=== PATIENT | male | born 1965 | race Caucasian/White ===

== ENCOUNTER 2023-10-11 10:37 | Emergency (ER) | payer OTHER ==
[~2023-10-11] VITALS: Ht 180.3 cm; Wt 59.4 kg
[2023-10-11 11:12] VITALS: BP 106/69
[2023-10-11 12:11] LABS: Source, Urine Foley catheter
[2023-10-11 12:13] LABS: Appearance, Urine Turbid (Clear); Bilirubin, Urine Neg (Neg); Blood, Urine 5+ (Neg); Glucose Qualitative, Urine Neg (Neg); Ketones, Urine Neg (Neg); Leukocyte Esterase, Urine 3+ (Neg); Nitrite, Urine Pos (Neg); Protein, Urine 3+ (Neg); Urobilinogen, Urine NORM (Normal)
[2023-10-11 12:21] LABS: Color, Urine Yellow (P-Yellow)
[2023-10-11 12:22] LABS: White Blood Cells, Urine TNTC /hpf (0-5)
[2023-10-11 12:23] LABS: Bacteria Many /hpf; Squamous Epithelial Cells Rare /hpf (Few)
[2023-10-11] MEDS ORDERED: Bactrim Ds Tab1 EACH PO (12:39)
== END 2023-10-11 13:15 | disposition home or self-care (01) ==
LOC: ER 10:37
PROVIDERS: Physician Assistant
DX: N39.0 Urinary tract infection, site not specified (principal); T83.84XA Pain due to genitourinary prosthetic devices, implants and grafts, initial encounter; C61 Malignant neoplasm of prostate; Z96.0 Presence of urogenital implants
CPT/HCPCS: 51702; 81001; 99283-25; A9270

== ENCOUNTER 2024-06-26 09:41 | Emergency (ER) | payer OTHER ==
[~2024-06-26] VITALS: Ht 180.3 cm; Wt 63.0 kg
[~2024-06-26 09:41] MED LIST: Bactrim Ds Tab1 EACH PO
[2024-06-26 10:11] VITALS: BP 143/87
[2024-06-26] MEDS ORDERED: OXYC10TA19 PO (10:13)
[2024-06-26] MEDS ORDERED: RAYOS PO (10:13)
[2024-06-26] MEDS ORDERED: NUBEQA300 MG PO (10:14)
[2024-06-26] MEDS ORDERED: Percocet 10-321 EACH PO (10:32)
[2024-06-26] MEDS ORDERED: OxyCODONE HCL 5 MG TAB PO ONE (10:35)
[2024-08-04] MEDS ORDERED: AMOX-CLAV 875-1 EAC5 PO (11:40)
[2024-08-04] MEDS ORDERED: NALOXONE HCL4 MG (11:41)
[2024-08-04] MEDS ORDERED: ROXICODONE15 MG PO (11:41)
[2024-08-04] MEDS ORDERED: OXYC15ER PO (16:45)
[2024-08-04] MEDS ORDERED: OXYC5 PO (16:47)
== END 2024-06-26 10:41 | disposition home or self-care (01) ==
LOC: ER 09:41
DX: Z76.0 Encounter for issue of repeat prescription (principal); Z79.52 Long term (current) use of systemic steroids; Z79.899 Other long term (current) drug therapy
CPT/HCPCS: 99282; A9270

== ENCOUNTER 2024-08-07 09:43 | Inpatient (IN) | payer OTHER ==
[~2024-08-07] VITALS: Ht 180.3 cm; Wt 59.7 kg
[~2024-08-07 09:43] MED LIST changes: +AMOX-CLAV 875-1 EAC5 PO; +NALOXONE HCL4 MG; +NUBEQA300 MG PO; +OXYC10TA19 PO; +OXYC15ER PO; +OXYC5 PO; +Percocet 10-321 EACH PO; +RAYOS PO; +ROXICODONE15 MG PO
[2024-08-07] MEDS ORDERED: Ondansetron HCl 2 MG / ML 2ML Vial IV ONE (10:15)
[2024-08-07] MEDS ORDERED: Morphine Sulfate 4 MG/1 ML Injection IV ONE (10:15)
[2024-08-07] MEDS ORDERED: NS 1,000 ML IV SCH ×2 (10:15→12:40)
[2024-08-07 10:21] LABS: BASOPHILS ABSOLUTE AUTO 0.11 K/mm3 (0.00-0.23); BASOPHILS PERCENT AUTO 0 % (0-2); EOSINOPHILS ABSOLUTE AUTO 0.07 K/mm3 (0.00-0.68); EOSINOPHILS PERCENT AUTO 0 % (0-6); Hematocrit 40.3 % (37.0-53.0); Hemoglobin 13.4 g/dL (13.5-17.5); IMMATURE GRAN ABSOLUTE AUTO 0.97 K/mm3 (0.00-0.10); IMMATURE GRAN PERCENT AUTO 4 % (0-1); LYMPHOCYTES ABSOLUTE AUTO 0.85 K/mm3 (0.84-5.20); LYMPHOCYTES PERCENT AUTO 3 % (21-46); MONOCYTES ABSOLUTE AUTO 0.93 K/mm3 (0.16-1.47); MONOCYTES PERCENT AUTO 3 % (4-13); Mean Corpuscular HGB 28.9 pg (26.0-34.0); Mean Corpuscular HGB Conc 33.3 g/dL (31.5-36.5); Mean Corpuscular Volume 87 fL (80-100); Mean Platelet Volume 9.7 fL (9.1-12.4); NEUTROPHILS ABSOLUTE AUTO 25.08 K/mm3 (1.96-9.15); NEUTROPHILS PERCENT AUTO 90 % (41-73); NRBC ABSOLUTE 0.03 K/mm3 (0.00-0.02); NRBC Auto 0.1 /100 WBC (0.0-0.2); Platelet Count 249 K/mm3 (150-400); RDW Coefficient Variation 16.5 % (11.7-14.2); RDW Standard Deviation 50.6 fL (35.1-46.3); Red Blood Cell Count 4.64 M/mm3 (4.30-5.90); White Blood Cell Count 28.01 K/mm3 (4.00-11.30)
[2024-08-07 10:39] LABS: Magnesium, Blood 1.8 mg/dL (1.6-2.4)
[2024-08-07 10:43] LABS: Albumin, Blood 2.9 g/dL (3.4-5.0); Albumin/Globulin Ratio 0.9 (0.8-1.8); Bilirubin, Total 0.4 mg/dL (0.1-1.0); Bun/Creatinine Ratio 8.5 (12.0-20.0); Creatinine, Blood 0.83 mg/dL (0.60-1.20); Globulin, Blood 3.4 g/dL (2.2-4.0); Potassium, Blood 4.4 mmol/L (3.5-5.5); Total Protein, Blood 6.3 g/dL (6.4-8.2)
[2024-08-07] MEDS ORDERED: Piperacillin/Tazobactam Sod 4.5 GM in NS 100 ML IV ONE (11:45)
[2024-08-07] MEDS ORDERED: Acetaminophen 500 MG Tab PO PRN (12:35)
[2024-08-07] MEDS ORDERED: Ondansetron HCl 2 MG / ML 2ML Vial IV PRN (12:40)
[2024-08-07] MEDS ORDERED: HYDROmorphone HCl/Pf 1MG SYR IV PRN (12:40)
[2024-08-07] MEDS ORDERED: FLU VACC TS2024-25(6MOS UP)/PF 45 MCG/0.5 ML SYRINGE IM SCH (12:40)
[2024-08-07] MEDS ORDERED: OxyCODONE HCL 5 MG TAB PO PRN ×2 (12:40→13:05)
[2024-08-07] MEDS ORDERED: Nicotine 21 MG PATCH TOP SCH (13:30)
[2024-08-07 14:14] VITALS: BP 122/81
--- NOTE | 2024-08-07 14:27 | NUR ---
PT ADMIT FROM ER. C/O SEVERE HEART BURN, REQUESTING TUMS. DR. TADEO NOTIFIED. EMAR UPDATED
[2024-08-07] MEDS ORDERED: Calcium Carbonate 500 MG Tab Chew PO PRN (14:30)
--- NOTE | 2024-08-07 14:44 | NUR ---
PT ADMISSION DELAYED TO ALLOW FOR ANTACID TO BE EFFECTIVE
[2024-08-07 15:57] VITALS: BP 114/72
--- NOTE | 2024-08-07 17:03 | NUR ---
PT ADMIT FROM ED. CURRENTLY SITTING IN ROOM WATCHING TV, EDUCATED ON USE OF CALL LIGHT. TREATED PAIN AND NAUSEA. PT PREFERS DOOR CLOSED. RECENT ADMISSION LEAVING AMA. INDEPENDENT IN THE ROOM. NICOTINE PATCH ON ADMIT FROM ED. PT TEARFUL. ABLE TO MAKE NEEDS KNOWN.
[2024-08-07] MEDS ORDERED: Piperacillin/Tazobactam Sod 3.375 GM in NS 100 ML IV SCH (18:00)
[2024-08-07 19:11] VITALS: BP 104/70
[2024-08-07] MEDS ORDERED: Famotidine 10 MG/ML 2ML Vial IV SCH (21:00)
--- NOTE | 2024-08-08 00:28 | NUR ---
HOSPITALIST CONTACTED. HOSPITALIST CONTACTED REGARDING PATIENTS PAIN UNRELIEVED BY CURRENT PAIN REGIMEN AND NAUSEA THAT RETURNS SHORTLY AFTER ZOFRAN. DR. DAMON TO REVIEW PATIENTS CHART AND MAKE ADJUSTMENTS NEEDED.
[2024-08-08] MEDS ORDERED: Prochlorperazine Edisylate 10 mg Vial IV PRN (00:45)
[2024-08-08] MEDS ORDERED: OxyCODONE HCL 5 MG TAB PO PRN (00:45)
[2024-08-08] MEDS ORDERED: Naloxone HCl 0.4MG / ML 1ML Vial IV PRN (00:50)
[2024-08-08 02:54] VITALS: BP 117/86
--- NOTE | 2024-08-08 05:46 | NUR ---
SHIFT SUMMARY. PATIENT IS A&OX4. PATIENT CALLS APPROPRIATELY AND IS ABLE TO MAKE HIS NEEDS KNOWN. PATIENT REPORTS SEVERE PAIN TO HIP AND ABDOMIN R/T PROSTATE CANCER STAGE 4. PATIENT HAS BEEN UP INDEPENDENTLY TO BATHROOM. ADJUSTMENTS TO PATIENTS PAIN MEDICATIONS MADE BY HOSPITALIST. PATIENT NEEDING PAIN MEDICATIONS REGULARLY-PATIENT WOULD BENEFIT FROM A CLINICAL TRAINING SPECIALIST PUMP. BED IS LOCKED IN THE LOWEST POSITION WITH CALL LIGHT IN REACH. CARE IS ONGOING.
[2024-08-08 05:54] LABS: Hematocrit 33.7 % (37.0-53.0); Hemoglobin 11.4 g/dL (13.5-17.5); Mean Corpuscular HGB 29.1 pg (26.0-34.0); Mean Corpuscular HGB Conc 33.8 g/dL (31.5-36.5); Mean Corpuscular Volume 86 fL (80-100); Mean Platelet Volume 9.7 fL (9.1-12.4); Platelet Count 205 K/mm3 (150-400); RDW Coefficient Variation 16.7 % (11.7-14.2); Red Blood Cell Count 3.92 M/mm3 (4.30-5.90); White Blood Cell Count 15.26 K/mm3 (4.00-11.30)
[2024-08-08 06:29] LABS: Albumin, Blood 2.5 g/dL (3.4-5.0); Anion Gap 13 mmol/L (3-11); Blood Urea Nitrogen 4 mg/dL (8-24); Bun/Creatinine Ratio 5.9 (12.0-20.0); CO2, Blood 20 mmol/L (21-32); Calcium, Blood 8.5 mg/dL (8.5-10.1); Chloride, Blood 109 mmol/L (98-108); Creatinine, Blood 0.68 mg/dL (0.60-1.20); Glomerular Filtration Rate 106 (60-); Glucose, Blood 95 mg/dL (70-99); Magnesium, Blood 1.6 mg/dL (1.6-2.4); Potassium, Blood 3.6 mmol/L (3.5-5.5); Sodium, Blood 138 mmol/L (136-145)
[2024-08-08 07:15] VITALS: BP 129/77
[2024-08-08] MEDS ORDERED: Enoxaparin 40 MG/0.4 ML SYR SC SCH (09:00)
[2024-08-08] MEDS ORDERED: OxyCODONE HCL 15 MG TAB.SR.12H PO SCH (11:00)
[2024-08-08] MEDS ORDERED: Potassium Phosphate Dibasic 20 MM in Dextrose 5% 500 ML IV STA (13:05)
[2024-08-08 16:03] VITALS: BP 122/82
--- NOTE | 2024-08-08 18:41 | NUR ---
SHIFT SUMMARY PATIENT ABLE TO AMBULATE IN ROOM AND TO BATHROOM INDEPENDENTLY. C/O INCREASED PAIN IN AM, CONSULTED WITH DR RODRIGES, CHANGES MADE WITH GOOD RESULTS. PREVIOUS PAIN RATING 8-9/10 CONSISTENT DOWN TO 5/[address] RODRIGES STATED SHE WILL D/C IV DILAUDED DUE TO INEFFECTIVENESS. CONTINUOUS PULSE OX IN PLACE, NO DESATS THIS SHIFT, ON ROOM AIR. STOOL SAMPLE SENT TO LAB. TOLERATING ZOSYN WELL. DIET UPGRADED, ENCOURAGED PATIENT TO START VERY SLOWLY AND STOP IF PAIN OCCURES. ABLE TO MAKE NEEDS KNOWN. CALL LIGHT IN REACH. CARES ONGOING.
[2024-08-08 19:21] VITALS: BP 116/73
[2024-08-08 19:51] LABS: Adenovirus F 40/41 Not Detected (NOT DETECT); Astrovirus Not Detected (NOT DETECT); Campylobacter Sp Not Detected (NOT DETECT); Cryptosporidium Not Detected (NOT DETECT); Cyclospora Cayetanensis Not Detected (NOT DETECT); E. Coli O157 Not Detected (NOT DETECT); Entamoeba Histolytica Not Detected (NOT DETECT); Enteroaggregative E. coli-EAEC Not Detected (NOT DETECT); Enteropathogenic E. coli-EPEC Not Detected (NOT DETECT); Enterotoxigenic E. coli-ETEC Not Detected (NOT DETECT); Giardia Lamblia Not Detected (NOT DETECT); Norovirus GI/GII Not Detected (NOT DETECT); Plesiomonas Shigelloides Not Detected (NOT DETECT); Rotavirus A Not Detected (NOT DETECT); Salmonella Sp Not Detected (NOT DETECT); Sapovirus Not Detected (NOT DETECT); Shiga Toxin-prod E. coli-STEC Not Detected (NOT DETECT); Shigella/Enteroin E. coli-EIEC Not Detected (NOT DETECT); Vibrio Cholerae Not Detected (NOT DETECT); Vibrio Sp Not Detected (NOT DETECT); Yersinia Enterocolitica Not Detected (NOT DETECT)
[2024-08-08] MEDS ORDERED: Potassium Phosphate Dibasic 20 MM in Dextrose 5% 500 ML IV ONE (23:30)
--- NOTE | 2024-08-09 02:24 | NUR ---
SHIFT SUMMARY PT IS A&O X4, ABLE TO MAKE HIS NEEDS KNOWN. PT HAS SEVERE PAIN: 9-08/20. PT C/O LEFT HIP AND ABDOMINAL PAIN, PAIN IS CONSTANT. PT REPORTS NO EFFECTIVNESS FROM THE SCHEDULED OXYCONTIN 30MG. MEDICATED WITH PRN OXYCODONE ORDERED, AND WITH DILAUDID ORDERED. PT REPORTS PAIN EFFECTIVNESS FROM IXYCODONE FROM 8-07/21 TO 5/10 ONCE DURING THIS SHIFT. IV THERAPY INFUSED ORDERED. NO ACUTE EVENTS DURING THIS SHIFT. BED AT THE LOWEST POSITION, CALL LIGHT W/I REACH.
[2024-08-09 04:47] VITALS: BP 110/81
[2024-08-09 07:53] LABS: BASOPHILS ABSOLUTE AUTO 0.05 K/mm3 (0.00-0.23); BASOPHILS PERCENT AUTO 0 % (0-2); EOSINOPHILS ABSOLUTE AUTO 0.12 K/mm3 (0.00-0.68); EOSINOPHILS PERCENT AUTO 1 % (0-6); Hematocrit 33.9 % (37.0-53.0); Hemoglobin 11.6 g/dL (13.5-17.5); IMMATURE GRAN ABSOLUTE AUTO 0.13 K/mm3 (0.00-0.10); IMMATURE GRAN PERCENT AUTO 1 % (0-1); LYMPHOCYTES ABSOLUTE AUTO 0.75 K/mm3 (0.84-5.20); LYMPHOCYTES PERCENT AUTO 7 % (21-46); MONOCYTES ABSOLUTE AUTO 0.67 K/mm3 (0.16-1.47); MONOCYTES PERCENT AUTO 6 % (4-13); Mean Corpuscular HGB 29.4 pg (26.0-34.0); Mean Corpuscular HGB Conc 34.2 g/dL (31.5-36.5); Mean Corpuscular Volume 86 fL (80-100); Mean Platelet Volume 10.4 fL (9.1-12.4); NEUTROPHILS ABSOLUTE AUTO 9.83 K/mm3 (1.96-9.15); NEUTROPHILS PERCENT AUTO 85 % (41-73); NRBC ABSOLUTE 0.03 K/mm3 (0.00-0.02); NRBC Auto 0.3 /100 WBC (0.0-0.2); Platelet Count 236 K/mm3 (150-400); RDW Coefficient Variation 16.6 % (11.7-14.2); RDW Standard Deviation 51.5 fL (35.1-46.3); Red Blood Cell Count 3.94 M/mm3 (4.30-5.90); White Blood Cell Count 11.55 K/mm3 (4.00-11.30)
[2024-08-09] MEDS ORDERED: OxyCODONE HCL 5 MG TAB PO PRN ×2 (07:55→18:15)
[2024-08-09 08:17] VITALS: BP 117/91
[2024-08-09 08:18] LABS: Albumin, Blood 2.4 g/dL (3.4-5.0); Albumin/Globulin Ratio 0.8 (0.8-1.8); Bilirubin, Total 0.2 mg/dL (0.1-1.0); Bun/Creatinine Ratio 1.4 (12.0-20.0); Creatinine, Blood 0.71 mg/dL (0.60-1.20); Globulin, Blood 2.9 g/dL (2.2-4.0); Potassium, Blood 3.7 mmol/L (3.5-5.5); Total Protein, Blood 5.3 g/dL (6.4-8.2)
[2024-08-09] MEDS ORDERED: Vancomycin HCl 125 MG Cap PO SCH (11:00)
[2024-08-09] MEDS ORDERED: NS 1,000 ML IV SCH (13:25)
[2024-08-09] MEDS ORDERED: Ketorolac Tromethamine 15mg Vial IV PRN (13:30)
[2024-08-09 15:13] VITALS: BP 106/74
--- NOTE | 2024-08-09 17:40 | NUR ---
SHIFT SUMMARY PATIENT AMBULATING TO BATHROOM SEVERAL TIMES THIS SHIFT. C/O STOMACH PAIN AND HIP PAIN THIS SHIFT. MEDICATED PER JAN, DECLINED HEAT AND ICE, ABLE TO REPOSITION WELL. DOWNGRADED TO FULL LIQUID DIET DUE TO PAIN WITH MEALS. A/OX4. ABLE TO MAKE NEEDS KNOWN. CALL LIGHT IN REACH, CARES ONGOING.
--- NOTE | 2024-08-09 18:12 | NUR ---
PATIENT WANTING TO LEAVE AMA, DISCUSSED OPTIONS AND RISK VS BENEFIT FOR STAYING. REQUESTING CHANGE TO PAIN MEDICATION, CALLED DR RODRIGES AND DISCUSSED THIS WITH HER, AGREEABLE TO MAKE CHANGE REQUESTED. PATIENT WILLING TO STAY AT THIS TIME.
[2024-08-09 20:02] VITALS: BP 108/75
--- NOTE | 2024-08-10 04:23 | NUR ---
SHIFT SUMMARY NO ACUTE EVENTS/DISTRESS DURING THIS SHIFT. PT IS A&O X4, ABLE TO MAKE HIS NEEDS KNOWN. SOME AGITATION WITH STAFF MEMBERS DURING THIS SHIFT R/T OXYCODONE Q2HR ORDER; PT ASKING TOO EARLY FOR PAIN MEDS. PT AWAKE MOST OF THE NIGHT HRS, CONTINUING TO REQUEST OXYCODONE PRN Q2HRS. PT REPORTS PAIN LEVEL 9/10 LEFT HIP, AND REPORTS PAIN DECREASING TO 6/10 WITH CONTINUOUS PAIN MANAGMENT. BED AT THE LOWEST POSITION, CALL LIGHT WITHIN REACH. PT IS ON ISOLATION D/T POSITIVE C-DIFF. PT DID NOT REPORT ABOUT THE BOWEL MOVEMENTS. PO VANCOMYACIN ADMINISTERED ORDERED, NS@50 INFUSING ORDERED.
[2024-08-10 04:46] VITALS: BP 109/69
[2024-08-10 06:14] LABS: BASOPHILS ABSOLUTE AUTO 0.03 K/mm3 (0.00-0.23); BASOPHILS PERCENT AUTO 0 % (0-2); EOSINOPHILS ABSOLUTE AUTO 0.07 K/mm3 (0.00-0.68); EOSINOPHILS PERCENT AUTO 1 % (0-6); Hematocrit 32.1 % (37.0-53.0); Hemoglobin 11.1 g/dL (13.5-17.5); IMMATURE GRAN ABSOLUTE AUTO 0.07 K/mm3 (0.00-0.10); IMMATURE GRAN PERCENT AUTO 1 % (0-1); LYMPHOCYTES PERCENT AUTO 7 % (21-46); MONOCYTES ABSOLUTE AUTO 0.41 K/mm3 (0.16-1.47); MONOCYTES PERCENT AUTO 5 % (4-13); Mean Corpuscular HGB 29.5 pg (26.0-34.0); Mean Corpuscular HGB Conc 34.6 g/dL (31.5-36.5); Mean Corpuscular Volume 85 fL (80-100); Mean Platelet Volume 9.1 fL (9.1-12.4); NEUTROPHILS ABSOLUTE AUTO 7.17 K/mm3 (1.96-9.15); NEUTROPHILS PERCENT AUTO 86 % (41-73); NRBC ABSOLUTE 0.03 K/mm3 (0.00-0.02); NRBC Auto 0.4 /100 WBC (0.0-0.2); Platelet Count 247 K/mm3 (150-400); RDW Coefficient Variation 16.3 % (11.7-14.2); RDW Standard Deviation 50.4 fL (35.1-46.3); Red Blood Cell Count 3.76 M/mm3 (4.30-5.90); White Blood Cell Count 8.35 K/mm3 (4.00-11.30)
[2024-08-10 06:34] LABS: Albumin, Blood 2.3 g/dL (3.4-5.0); Albumin/Globulin Ratio 0.8 (0.8-1.8); Bilirubin, Total 0.2 mg/dL (0.1-1.0); Bun/Creatinine Ratio 6.2 (12.0-20.0); Calcium, Blood 8.3 mg/dL (8.5-10.1); Creatinine, Blood 0.64 mg/dL (0.60-1.20); Globulin, Blood 2.8 g/dL (2.2-4.0); Potassium, Blood 3.5 mmol/L (3.5-5.5); Total Protein, Blood 5.1 g/dL (6.4-8.2)
[2024-08-10 07:27] VITALS: BP 118/75
[2024-08-10] MEDS ORDERED: VANCOCIN HCL125 MG PO (14:01)
[2024-08-10] MEDS ORDERED: 1/2 NS 250ml250 ML (14:01)
[2024-08-10] MEDS ORDERED: VISBIOME 112.51 EACH PO (14:02)
--- NOTE | 2024-08-10 15:34 | NUR ---
PATIENT ANXIOUS ABOUT DISCHARGING, CONCERNED HIS ABx WILL NOT BE READY FOR PICKUP. CALL TO PHARMACY AND SPOKE WITH JUSTIN WHO STATED THEY HAVE NOT RECEIVED FAX. SPOKE WITH PHARMACIST AND GAVE VERBAL ORDER TO [facility], FOR VANCOCIN 125MG PO Q6H x9 DAYS #36. ORDER REFAXED, WELL.
--- NOTE | 2024-08-10 16:01 | NUR ---
DISCHARGE/SHIFT SUMMARY: A&Ox4. PLEASANT AND COOPERATIVE WITH CARE. CALLS APPROPRIATELY AND IS ABLE TO ADVOCATE NEEDS EFFECTIVELY. AMBULATES INDEPENDENTLY WITHIN ROOM. CONTINENT OF BOWEL AND BA AMBULATION: ELIMINATION: LBM: MEDS: TELE: PAIN: IV REMOVED BY FOLLOW-UP WITH PATIENT ESCORTED FROM FLOOR BY WITH ALL BELONGINGS AND DISCHARGE PACKET @ . TRANSPORTATION PROVIDED BY .
== END 2024-08-10 15:30 | disposition home or self-care (01) | DRG 872 ==
LOC: ER 09:43 → MEDS 13:31
PROVIDERS: Emergency Medicine; Physician Assistant; Registered Nurse; Student in an Organized Health Care Education/Training Program; ADMIT Internal Medicine
DX: A41.9 Sepsis, unspecified organism (principal); C79.51 Secondary malignant neoplasm of bone; A04.72 Enterocolitis due to Clostridium difficile, not specified as recurrent; I95.9 Hypotension, unspecified; G89.3 Neoplasm related pain (acute) (chronic); C61 Malignant neoplasm of prostate; E83.39 Other disorders of phosphorus metabolism; Z79.52 Long term (current) use of systemic steroids; Z79.899 Other long term (current) drug therapy
CPT/HCPCS: 36415; 74177; 80053; 80069; 83605; 83690; 83735; 84100; 85025; 85027; 87324; 87507; 94762; 96365; 96375; 99285-25; A9270; J0780; J1170; J1885; J2270; J2405; J2543; J7030; J7060; Q9967

== ENCOUNTER 2024-09-04 01:18 | Inpatient (IN) | payer OTHER ==
[~2024-09-04] VITALS: Ht 180.3 cm; Wt 57.0 kg
[~2024-09-04 01:18] MED LIST changes: +1/2 NS 250ml250 ML; +VANCOCIN HCL125 MG PO; +VISBIOME 112.51 EACH PO
[2024-09-04] MEDS ORDERED: Ondansetron HCl 2 MG / ML 2ML Vial IV ONE (01:35)
[2024-09-04 02:15] LABS: BASOPHILS ABSOLUTE AUTO 0.17 K/mm3 (0.00-0.23); BASOPHILS PERCENT AUTO 1 % (0-2); EOSINOPHILS ABSOLUTE AUTO 0.02 K/mm3 (0.00-0.68); EOSINOPHILS PERCENT AUTO 0 % (0-6); Hematocrit 40.8 % (37.0-53.0); Hemoglobin 13.7 g/dL (13.5-17.5); IMMATURE GRAN ABSOLUTE AUTO 0.71 K/mm3 (0.00-0.10); IMMATURE GRAN PERCENT AUTO 2 % (0-1); LYMPHOCYTES ABSOLUTE AUTO 0.99 K/mm3 (0.84-5.20); LYMPHOCYTES PERCENT AUTO 3 % (21-46); MONOCYTES ABSOLUTE AUTO 1.18 K/mm3 (0.16-1.47); MONOCYTES PERCENT AUTO 3 % (4-13); Mean Corpuscular HGB 29.3 pg (26.0-34.0); Mean Corpuscular HGB Conc 33.6 g/dL (31.5-36.5); Mean Corpuscular Volume 87 fL (80-100); Mean Platelet Volume 11.4 fL (9.1-12.4); NEUTROPHILS ABSOLUTE AUTO 32.23 K/mm3 (1.96-9.15); NEUTROPHILS PERCENT AUTO 91 % (41-73); NRBC ABSOLUTE 0.05 K/mm3 (0.00-0.02); NRBC Auto 0.1 /100 WBC (0.0-0.2); Platelet Count 254 K/mm3 (150-400); RDW Coefficient Variation 17.6 % (11.7-14.2); RDW Standard Deviation 54.4 fL (35.1-46.3); Red Blood Cell Count 4.68 M/mm3 (4.30-5.90)
[2024-09-04 02:20] LABS: Albumin/Globulin Ratio 0.9 (0.8-1.8); Bilirubin, Total 0.4 mg/dL (0.1-1.0); Bun/Creatinine Ratio 11.4 (12.0-20.0); Calcium, Blood 9.4 mg/dL (8.5-10.1); Creatinine, Blood 0.7 mg/dL (0.60-1.20); Globulin, Blood 3.5 g/dL (2.2-4.0); Potassium, Blood 3.8 mmol/L (3.5-5.5); Total Protein, Blood 6.5 g/dL (6.4-8.2)
[2024-09-04] MEDS ORDERED: FentaNYL Citrate 50 MCG/ML 2 ML Injection IV PRN (02:20)
[2024-09-04] MEDS ORDERED: NS 1,000 ML IV SCH (02:20)
[2024-09-04] MEDS ORDERED: Cefepime HCl 1,000 MG in NS 100 ML IV ONE (02:25)
[2024-09-04] MEDS ORDERED: HYDROmorphone HCl/Pf 1MG SYR IV ONE (03:10)
[2024-09-04] MEDS ORDERED: Metoclopramide HCl 5MG / ML 2ML Vial IV ONE (03:10)
[2024-09-04] MEDS ORDERED: Prochlorperazine Edisylate 10 mg Vial IV ONE (04:00)
[2024-09-04] MEDS ORDERED: HYDROmorphone HCl/Pf 1MG SYR IV PRN (04:00)
[2024-09-04 04:33] LABS: Source, Urine Clean Catch
[2024-09-04] MEDS ORDERED: Vancomycin HCL 1,250 MG in NS 250 ML IV ONE (04:35)
[2024-09-04 04:38] LABS: Bilirubin, Urine Neg (Neg); Blood, Urine 1+ (Neg); Glucose Qualitative, Urine Neg (Neg); Ketones, Urine 3+ (Neg); Leukocyte Esterase, Urine Neg (Neg); Nitrite, Urine Neg (Neg); Protein, Urine Neg (Neg); Urobilinogen, Urine NORM (Normal)
[2024-09-04] MEDS ORDERED: FLU VACC TS2024-25(6MOS UP)/PF 45 MCG/0.5 ML SYRINGE IM ONE (04:40)
[2024-09-04] MEDS ORDERED: Ondansetron HCl 2 MG / ML 2ML Vial IV PRN (04:40)
[2024-09-04 04:46] LABS: Appearance, Urine Clear (Clear); Color, Urine Pale Yellow (P-Yellow)
[2024-09-04 04:48] LABS: Bacteria Few /hpf; Red Blood Cells, Urine 0-2 /hpf (0-2); Squamous Epithelial Cells Few /hpf (Few); White Blood Cells, Urine 0-2 /hpf (0-5)
[2024-09-04] MEDS ORDERED: DiphenhydrAMINE HCl 50 MG/ML 1ML Vial IV ONE (04:55)
[2024-09-04] MEDS ORDERED: Lactated Ringer's 1,000 ML IV SCH (05:00)
[2024-09-04 06:18] LABS: BASOPHILS ABSOLUTE AUTO 0.09 K/mm3 (0.00-0.23); BASOPHILS PERCENT AUTO 0 % (0-2); EOSINOPHILS ABSOLUTE AUTO 0.01 K/mm3 (0.00-0.68); EOSINOPHILS PERCENT AUTO 0 % (0-6); Hematocrit 37.2 % (37.0-53.0); Hemoglobin 12.7 g/dL (13.5-17.5); IMMATURE GRAN ABSOLUTE AUTO 0.58 K/mm3 (0.00-0.10); IMMATURE GRAN PERCENT AUTO 2 % (0-1); LYMPHOCYTES ABSOLUTE AUTO 0.54 K/mm3 (0.84-5.20); LYMPHOCYTES PERCENT AUTO 2 % (21-46); MONOCYTES ABSOLUTE AUTO 0.72 K/mm3 (0.16-1.47); MONOCYTES PERCENT AUTO 2 % (4-13); Mean Corpuscular HGB 29.4 pg (26.0-34.0); Mean Corpuscular HGB Conc 34.1 g/dL (31.5-36.5); Mean Corpuscular Volume 86 fL (80-100); Mean Platelet Volume 10.2 fL (9.1-12.4); NEUTROPHILS ABSOLUTE AUTO 28.41 K/mm3 (1.96-9.15); NEUTROPHILS PERCENT AUTO 94 % (41-73); NRBC ABSOLUTE 0.03 K/mm3 (0.00-0.02); NRBC Auto 0.1 /100 WBC (0.0-0.2); Platelet Count 206 K/mm3 (150-400); RDW Coefficient Variation 17.2 % (11.7-14.2); RDW Standard Deviation 53.3 fL (35.1-46.3); Red Blood Cell Count 4.32 M/mm3 (4.30-5.90); White Blood Cell Count 30.35 K/mm3 (4.00-11.30)
[2024-09-04] MEDS ORDERED: Fidaxomicin 200 MG Tab PO SCH ×2 (06:26→21:00)
[2024-09-04] MEDS ORDERED: Vancomycin HCl 125 MG Cap PO SCH (06:34)
[2024-09-04] MEDS ORDERED: Droperidol 5 mg/2 ml Vial IV ONE (06:40)
[2024-09-04 06:50] LABS: Albumin, Blood 2.7 g/dL (3.4-5.0); Albumin/Globulin Ratio 0.8 (0.8-1.8); Bilirubin, Total 0.3 mg/dL (0.1-1.0); Bun/Creatinine Ratio 13.7 (12.0-20.0); Calcium, Blood 8.8 mg/dL (8.5-10.1); Creatinine, Blood 0.58 mg/dL (0.60-1.20); Globulin, Blood 3.2 g/dL (2.2-4.0); Potassium, Blood 3.8 mmol/L (3.5-5.5); Total Protein, Blood 5.9 g/dL (6.4-8.2)
[2024-09-04] MEDS ORDERED: Mag Sulfate 1 GM/D5% 100ML 100 ML IV STA (07:12)
[2024-09-04] MEDS ORDERED: Lactobacil 2-S.Thermo-Bifido 1 1 Cap PO SCH (09:00)
[2024-09-04] MEDS ORDERED: LORazepam 2 MG/ML 1ML Injection IV PRN (10:00)
[2024-09-04 14:06] VITALS: BP 153/88
--- NOTE | 2024-09-04 16:58 | NUR ---
MET WITH PATIENT AND FAMILY. DISCUSSED HOW THE POWER HAS BEEN DOING. THEY REPORTED THAT HIS APPETITE HAS BEEN LOW. RECENT WEIGHT LOSS. HE LIVES WITH FAMILY. NO FALLS. HE HAS BEEN SEEING DR. TOVAR AND GETTING CHEMO. DISCUSSED CODE STATUS AND PATIENT RELAYED THAT AT THIS TIME HE WANTS COMPRESSIONS IF HIS HEART WERE TO STOP. DR. AUSTIN BACK TO THE ROOM TO DISCUSS CT RESULTS. PC WILL CONTINUE TO FOLLOW
[2024-09-04 19:00] LABS: Adenovirus F 40/41 Not Detected (NOT DETECT); Astrovirus Not Detected (NOT DETECT); Campylobacter Sp Not Detected (NOT DETECT); Cryptosporidium Not Detected (NOT DETECT); Cyclospora Cayetanensis Not Detected (NOT DETECT); E. Coli O157 Not Detected (NOT DETECT); Entamoeba Histolytica Not Detected (NOT DETECT); Enteroaggregative E. coli-EAEC Not Detected (NOT DETECT); Enteropathogenic E. coli-EPEC Not Detected (NOT DETECT); Enterotoxigenic E. coli-ETEC Not Detected (NOT DETECT); Giardia Lamblia Not Detected (NOT DETECT); Norovirus GI/GII Not Detected (NOT DETECT); Plesiomonas Shigelloides Not Detected (NOT DETECT); Rotavirus A Not Detected (NOT DETECT); Salmonella Sp Not Detected (NOT DETECT); Sapovirus Not Detected (NOT DETECT); Shiga Toxin-prod E. coli-STEC Not Detected (NOT DETECT); Shigella/Enteroin E. coli-EIEC Not Detected (NOT DETECT); Vibrio Cholerae Not Detected (NOT DETECT); Vibrio Sp Not Detected (NOT DETECT); Yersinia Enterocolitica Not Detected (NOT DETECT)
--- NOTE | 2024-09-04 19:49 | NUR ---
DAY SHIFT SUMMARY: A&Ox4. IRRITABLE AND UNCOOPERATIVE; REFUSED MOST OF ADMISSION ASSESSMENT AND DECLINED TO ANSWER "A BUNCH OF FUCKING QUESTIONS RIGHT NOW". TACHYCARDIC; PROVIDER AWARE AND INCREASED FLUIDS. PROVIDER MET WITH PATIENT, FAMILY AND PALLIATTIVE CARE AND INFORMED CANCER HAS INFILTRATED THE LIVER; PT WONDERING IF HE CAN HAVE LIVER TRANSPLANT TO "BUY HIM SOME TIME". TYPICALLY INDEPENDENT BUT ASKED TO CALL FOR ASSISTANCE TO BATHROOM OF WHICH HE HAS NOT BEEN COMPLIANT, SO BED ALARM WAS SET, BUT PATIENT TURNS THIS OFF WHEN STAFF NOT IN ROOM OR AMBULATES WITHOUT THEIR PRESENCE, ANYWAY. FLUIDS RUNNING. ARMBOARD APPLIED TO LEFT AC TO HELP PROMOTE MAINTAINING PATENCY, BUT PATIENT TURNS ALARM OFF ON IV PUMP WHEN BEEPING AND THREATENS TO "SMASH THE FUCKING THING". LEFT ALONE FOR SOME REFLECTION TIME THERAPEUTIC COMMUNICATION WAS NOT PROVING EFFECTIVE AT THIS TIME EVIDENCED BY PATIENT'S ESCALATING MOOD. REPORT TO ONCOMING RN.
[2024-09-04 20:11] VITALS: BP 126/72
[2024-09-04] MEDS ORDERED: OxyCODONE HCL 10 MG TABCR PO SCH (21:00)
[2024-09-05] MEDS ORDERED: Prochlorperazine Edisylate 10 mg Vial IV PRN (00:20)
--- NOTE | 2024-09-05 05:14 | NUR ---
SHIFT SUMMARY PATIENT IS ALERT AND ORIENTED. PATIENT HAS HAD NO ACUTE EVENTS THIS SHIFT. VITAL SIGNS REVIEWED. PATIENT HAS REFUSED MORNING VITALS. PATIENT HAS COMPLAINED OF PAIN AND NAUSEA AND VOMITTING THIS SHIFT. PATIENT HAS BEEN COMPLAINING OF PAIN MOST OF SHIFT. MEDICATED PER EMAR FOR PAIN. PATIENT IS THREATENING TO LEAVE AMA FOR NOT GETTING ANY PAIN MEDICATION. PATIENT WAS EXPLAINED THAT THERE ARE PARAMETERS FOR PAIN ADMINISTRATION. PATIENT STATES "IM GOING TO HAVE MY BROTHER BRING IN PAIN MEDICATION AND GIVE IT TO ME WITHOUT ANYONE KNOWING" PATIENT TURNS OFF BED ALARM. PATIENT TURNS OFF IV PUMP ALARMS. PATIENT ADVISED AGAINST DOING BOTH. BED IN LOCKED AND LOWEST POSITION.
--- NOTE | 2024-09-05 05:45 | NUR ---
RADHA ANGUIANO, [id number] CALLED AND SPOKE TO COREY AMBROSIO AND THEN REQUESTED TO SPEAK TO THE CN, SHE REPORTED SHE RECEIVED A TELEPHONE CALL FROM POWER STATING THAT "HIS PAIN WASN'T BEING MANAGED." I WAS ATTEMPTING TO EXPLAIN THE MEDICATIONS HE HAS BEEN RECEIVING FOR PAIN MANAGEMENT TONIGHT, HOWEVER, SHE WAS UPSET, AND STATED "I AM NOT A NURSE" AND MAYBE "WE SHOULD TAKE HIM TO [facility]." SHE THEN ASKED TO TALK TO THE PATIENT ADVOCATE. I LEFT A MESSAGE ON THE [employer] FOR PATIENT ADVOCATE WITH PT'S NAME, HER NAME, AND TELEPHONE NUMBER [phone], AND HER CONCERNS WITH PT'S PAIN NOT BEING MANAGED.
--- NOTE | 2024-09-05 05:46 | NUR ---
NURSE NOTE PATIENTS SISTER CALLED FOR UPDATE. PATIENT GAVE CONSENT TO GIVE INFORMATION TO SISTER. PATIENTS SISTER WAS GIVEN INFORMATION REGARDING PATIENT AND PAIN MEDICATION ADMINISTRATION. PATIENT REQUESTED CHARGE NURSE TO SPEAK TO. DACIA NICOLE SPOKE WITH PATIENTS SISTER.
[2024-09-05 06:36] LABS: Hematocrit 33.9 % (37.0-53.0); Hemoglobin 11.5 g/dL (13.5-17.5); Mean Corpuscular HGB 29.3 pg (26.0-34.0); Mean Corpuscular HGB Conc 33.9 g/dL (31.5-36.5); Mean Corpuscular Volume 87 fL (80-100); Mean Platelet Volume 10.8 fL (9.1-12.4); NRBC ABSOLUTE 0.02 K/mm3 (0.00-0.02); NRBC Auto 0.1 /100 WBC (0.0-0.2); Platelet Count 191 K/mm3 (150-400); RDW Coefficient Variation 17.6 % (11.7-14.2); RDW Standard Deviation 54.5 fL (35.1-46.3); Red Blood Cell Count 3.92 M/mm3 (4.30-5.90); White Blood Cell Count 21.03 K/mm3 (4.00-11.30)
[2024-09-05 06:58] LABS: Bun/Creatinine Ratio 8.3 (12.0-20.0); Calcium, Blood 8.1 mg/dL (8.5-10.1); Creatinine, Blood 0.6 mg/dL (0.60-1.20); Magnesium, Blood 1.7 mg/dL (1.6-2.4); Potassium, Blood 3.3 mmol/L (3.5-5.5)
[2024-09-05] MEDS ORDERED: HYDROmorphone HCl/Pf 1MG SYR IV PRN (07:35)
[2024-09-05] MEDS ORDERED: OxyCODONE HCL 5 MG TAB PO PRN (07:35)
[2024-09-05] MEDS ORDERED: Potassium Chl 20MEQ/Water100ML 100 ML IV SCH (08:15)
[2024-09-05] MEDS ORDERED: Enoxaparin 40 MG/0.4 ML SYR SC SCH (09:00)
[2024-09-05 11:50] VITALS: BP 114/74
[2024-09-05] MEDS ORDERED: Potassium Chloride 10 Meq Tablet SA PO SCH (12:00)
[2024-09-05 12:03] VITALS: BP 114/74
--- NOTE | 2024-09-05 12:56 | NUR ---
PT WITH FALL JUST AFTER THIS RN RELIEVED PRIMARY RN FOR LUNCH. ASSESSMENT COMPLETED AND MD NOTIFIED. WHEN PRIMARY RN RETURNED HE WAS NOTIFIED AND UPDATED OF PT FALL AND POST ASSESSMENT.
[2024-09-05 15:38] VITALS: BP 115/74
--- NOTE | 2024-09-05 16:58 | NUR ---
REPORT RECEIVED VERIFIED. A/O X 4 VERY ANXIOUS ABOUT PAIN MEDICATIONAND RECEIVING MEDS ON TIME. I EXPLAINED THAT HIS MEDS NEEDED TO BE REASSESSES AND THAT I WOULD CALL THE MD, PT AGREED AND AWAITED FOR ME TO BRING IN MEDS. PT WAS MEDICATED AND ENC TO RELAX AND SLEEP, MD WAS NOTIFIED AND PLAN OF PALATIVE CARE WAS PUT IN PLACE, PALATIVE NURSE TO COME AND CONSULT WITH PT AND FAMILY. 1530 MEETING WAS HAD AND PLAN OF ACTION FOR PALATIVE /HOSPICE, NEW MEDS ORDERED AND PT INFORMED ON HOW THIS WOULD BE IMPLEMETED.
[2024-09-05] MEDS ORDERED: LORazepam 1 MG Tab PO PRN (17:20)
[2024-09-05] MEDS ORDERED: Atropine Sulfate 1% Opth Soln 2ML BTL SL PRN (17:20)
[2024-09-05] MEDS ORDERED: Acetaminophen 325 MG TABLET PO PRN (17:20)
[2024-09-05] MEDS ORDERED: Scopolamine Hydrobromide Patch TOP PRN (17:20)
[2024-09-05] MEDS ORDERED: Dexamethasone Sod Phos 10 MG/ML 1ML VIAL IV ONE (17:45)
[2024-09-05] MEDS ORDERED: Nicotine 21 MG PATCH TOP ONE (17:45)
--- NOTE | 2024-09-05 17:50 | NUR ---
GOALS OF CARE CONVERSATION WITH PT, BROTHER, [id number] AND NEPHEW. FAMILY REPORTS PT'S PAIN HAS NOT BEEN MANAGED AND IS NEEDING MORE MEDICATION THAN WHAT IS ORDERED. ADDITIONALLY, THEY REPORT HE HAS SIGNIFICANT WT LOSS IN THE LAST 2 MTS. INCREASE IN FATIGUE. PT AND FAMILY REQUEST D/C HOME WITH HOSPICE. THEY ARE AGREEABLE TO STARTING ON COMFORT CARE WHILE IN THE HOSPITAL, IN AN ATTEMPT TO FINE TUNE A PAIN RELEIF REGIMENT. VERBAL ORDERS RCV'D FROM PROVIDER TO D/C OXYCODONE CR AND REPLACE IT WITH MS CONTIN. DEXAMETHASONE ADDED FOR PAIN SX RELEIF. PT IS A HEAVY TOBACCO SMOKER AND IS AGREEABLE TO A NICOTINE PATCH FOR CESSATION. PATCH ORDERED. PC TO REMAIN AVAILABLE NEEDED.
--- NOTE | 2024-09-05 18:43 | NUR ---
I EXPLAINED TO THE PT THAT WE WOULD ATTEMPT TO HOLD PT MEDICATION LONG POSSIBLE SINCE HIS PLAN WAS TO GO HOME WITH HOSPICE. PT AGREED AND PO MEDICATION WAS GIVEN WILL ATTEMPT TO MANAGE WITH PO
[2024-09-05] MEDS ORDERED: Dexamethasone 2 MG Tab PO SCH (21:00)
[2024-09-05] MEDS ORDERED: Morphine Sulfate 15 MG TABCR PO SCH (21:00)
[2024-09-06] MEDS ORDERED: HYDROmorphone HCl 2 MG Tab PO PRN (03:00)
[2024-09-06] MEDS ORDERED: HYDROmorphone HCl 2 MG Tab PO ONE (03:00)
--- NOTE | 2024-09-06 07:39 | NUR ---
AGENCY CASHIER SUMMARY CALLED THE AGENCY CASHIER DOCTOR BECAUSE PTS PAIN WAS ONLY RESPONDING TO IV DILAUDID BUT PT WANTS TO GO HOME SO I ASKED IF WE COULD DISONTINUE THE IV DIALUDID AND THE OXYCODONE AND TRY PO DILAUDID SO HE MIGHT BE ABLE TO GO HOME TODAY. PT DID FALL ASLEEP AND APPEAR VERY COMFORTABLE AFTER RECEIVING PO DILAUDID BUT HE IS NOW SAYING IT DOESNT WORK WELL AND HE IS CURRENTLY ASKING FOR IV DILAUDID.
[2024-09-06] MEDS ORDERED: Nicotine 21 MG PATCH TOP SCH (09:00)
[2024-09-06] MEDS ORDERED: Morphine Sulfate 20 MG/1ML 1 ML Oral Syringe PO PRN (12:05)
--- NOTE | 2024-09-06 12:34 | NUR ---
MORNING VISIT WITH PT, BROTHER AND MACIEL. AMBULATING WITH A W/C. MET AT THE ELEVATOR. PT IS WITHDRAWN. HE WILL ANSWER DIRECT QUESTIONS. A/O X4. MACIEL REPORTS HE WAS ABLE TO GET SOME GOOD REST LAST NIGHT AFTER ADJUSTING SOME MEDICATIONS. PHONE CALL FROM PRIMARY RN THIS AFTERNOON WITH REPORTS OF UNMANAGED PAIN. THIS PC RN AND PROVIDER ARE IN AGREEMENT WITH STARTING ON 5 MG OF ROXANOL. I FEAR ENIO EOL JOURNEY IS GOING TO BE DIFFICULT, BOTH SPIRITUALLY AND PHYSICALLY. HE HAS UNRESOLVED BUSINESS AND IS VERY FEARFUL. OFFERED CUSTOMER SUPPORT TECHNICIAN SERVICES. PT DECLINES AT THIS TIME. PC TO REMAIN AVAILABLE NEEDED.
[2024-09-06] MEDS ORDERED: MS CONTIN15 MG PO (14:33)
[2024-09-06] MEDS ORDERED: DEXA2 PO (14:34)
[2024-09-06] MEDS ORDERED: HYDMOR2 PO (14:34)
[2024-09-06] MEDS ORDERED: NICO21TP TOP (14:35)
[2024-09-06] MEDS ORDERED: Ativan1 MG PO (14:35)
[2024-09-06] MEDS ORDERED: TRANSDERM-SCOP1 EA10 TD (14:36)
[2024-09-06] MEDS ORDERED: VISBIOME 112.51 EACH PO (14:36)
[2024-09-06] MEDS ORDERED: MORP20L PO (14:38)
[2024-09-06] MEDS ORDERED: VANCOCIN HCL125 MG PO (14:39)
--- NOTE | 2024-09-06 15:56 | NUR ---
REPORT RECEIVED VERIFIED PT ON COMFORT CARE AND RECEIVEING PAIN MANAGEMNET, PT IN CONSTANT PAIN SO STAFF TRYING TO ABSTAIN FROM IV MEDICATION TO GET PT HOME. PT GIVEN ORAL MEDS PER MAR. FAMILY AT BEDSIDE ASSISTING WITH CARE. HOSPICE WAS ARRANGED FOR PT TO BE SEEN AT HOME TODAY, PENDING MEDS. 1530 PT FAMILY ARRIVED WITH PT MEDS AND DISCHARGE ORDERS EXPLAINED TO FAMILY. FAM VERBALIZED UNDERSTANDING
== END 2024-09-06 15:46 | disposition hospice, home (50) | DRG 872 ==
LOC: ER 01:18 → MEDS 04:38 → ERHOLD 04:38 → MEDS 13:58
PROVIDERS: Emergency Medicine; Internal Medicine; ADMIT Student in an Organized Health Care Education/Training Program
DX: A41.89 Other specified sepsis (principal); D84.9 Immunodeficiency, unspecified; A04.71 Enterocolitis due to Clostridium difficile, recurrent; C61 Malignant neoplasm of prostate; Z51.5 Encounter for palliative care; Z66 Do not resuscitate; E87.6 Hypokalemia; E83.42 Hypomagnesemia; Z79.891 Long term (current) use of opiate analgesic; Z79.2 Long term (current) use of antibiotics; Z79.899 Other long term (current) drug therapy
CPT/HCPCS: 36415; 74174; 80048; 80053; 81001; 83605; 83735; 84153; 85025; 85027; 87040; 87324; 87507; 93005; 93010; 96365; 96375; 96376; 99285-25; A9270; J0692; J0780; J1100; J1200; J1790; J2060; J2405; J2765; J3010; J3370; J3475; J3480; J7030; J7050; J7120; Q9967